=== PATIENT | female | born 1960 | race Caucasian/White ===

== ENCOUNTER 2023-01-14 00:14 | Day surgery (SDC) | payer BC, SELFPAY ==
[2023-01-01 12:57] VITALS: BMI 52.4
[2023-01-14 07:12] VITALS: BP 142/67; PULSE 52; RESP 17; TEMP 36; O2SAT 100; BMI 51.0
[2023-01-14] MEDS: LACTATED RINGERS 1,000 ML 150 ML IV CONT (07:21)
--- NOTE | 2023-01-14 07:27 | PM.HPGS ---
History of Present Illness History of Present Illness Consent: Risks, benefits, and alternatives have been discussed and questions answered. Patient agrees to proceed with procedure. Chief complaint: neoplasm screening Narrative: Sarah Morris is a 62 year old female Presents for screening colonoscopy. Patient's current weight appetite bowel movements are normal. Patient denies abdominal pain. She has had no bleeding. Family history noncontributory. Patient presents today for screening exam. Review of Systems Review of Systems: Review of systems noncontributory. [facility] Past Medical History Medical History Essential (primary) hypertension Hyperlipidemia, unspecified Vitamin D deficiency Surgical History Surgical History History of hysteroscopy D&C, polyp removal 08/25/2013 History of total abdominal hysterectomy and bilateral salpingo-oophorectomy 10/04/2015 Social History Social History (Updated 11/17/22 @ 17:05 by Britt Ramos MA) Smoking status: Former smoker Tobacco type: cigarettes Alcohol intake: current Drinks per week: 2 Substance use: never Substance use type: does not use Lack of Transportation: No Lack of Food: Never True Current Housing: I Have Housing Concerned About Future Housing: No Difficulty Paying Gas/Electric Bills: No Difficulty Paying for Meds: No Currently Unemployed: No Education: High School Diploma/GED Difficulty w/ Childcare or Family Care: No Living arrangements: alone Occupation/Education: occupation Gender identity (if verbalized by the patient): Female Sexual Orientation (if Verbalized by the Patient): Straight or Heterosexual Spiritual care concerns: No Meds Home Medications and Allergies Home Medications Medication Instructions Recorded Confirmed Type atorvastatin 40 mg tablet 40 mg PO DAILY 11/17/22 01/14/23 History spironolactone 25 mg tablet 25 mg PO DAILY 11/17/22 01/14/23 History lisinopril 20 mg tablet 20 mg PO DAILY #90 tabs 11/18/22 01/14/23 Rx metoprolol succinate 200 mg 200 mg PO DAILY 01/14/23 01/14/23 History tablet,extended release 24 hr Allergies Allergy/AdvReac Type Severity Reaction Status Date / Time No Known Allergies Allergy Verified 01/14/23 07:11 Vital Signs Vital Signs - 24 hr 01/14/23 07:12 Temperature 96.8 F L Pulse Rate 52 L Respiratory Rate 17 Blood Pressure 142/67 H Pulse Oximetry 100 Oxygen Delivery Room Air Exam Narrative: Physical exam reveals patient be alert. Vital signs stable. HEENT exam is unremarkable. Patient is anicteric. Lungs are clear to auscultation and percussion. Heart is without murmur or extra sounds. Abdomen Is obese. bowel sounds are present soft nontender with no organomegaly. Digital external rectal exam is normal. Assessment and Plan Assessment and plan (1) Encounter for screening colonoscopy: Code(s): Z12.11 - Encounter for screening for malignant neoplasm of colon Status: Acute Assessment and Plan: Patient presents today for screening colonoscopy. She appears to be at average risk for colon polyps. Further recommendations may be given after endoscopy.
--- NOTE | 2023-01-14 08:11 | P.PNAN_ITS ---
Anes - Initial Pre Proc Eval Procedure: Operation Date: 01/14/23 08:30 Proposed Procedures p Screening Colonoscopy - Juwan Garcia MD Date/Time: 01/14/23 08:11 Surgeon: Juwan Garcia MD Pre Op Diagnosis: neoplasm screening Patient Data Age: 62 Gender: F Height: 1.65 m Weight: 139 kg Last Vital Signs Temp 96.8 F L 01/14/23 07:12 Pulse 52 L 01/14/23 07:12 Resp 17 01/14/23 07:12 BP 142/67 H 01/14/23 07:12 Pulse Ox 100 01/14/23 07:12 O2 Del Method Room Air 01/14/23 07:12 Allergies Allergy/AdvReac Type Severity Reaction Status Date / Time No Known Allergies Allergy Verified 01/14/23 07:11 Home Medications Medication Instructions Recorded Confirmed Type atorvastatin 40 mg tablet 40 mg PO DAILY 11/17/22 01/14/23 History spironolactone 25 mg tablet 25 mg PO DAILY 11/17/22 01/14/23 History lisinopril 20 mg tablet 20 mg PO DAILY #90 tabs 11/18/22 01/14/23 Rx metoprolol succinate 200 mg 200 mg PO DAILY 01/14/23 01/14/23 History tablet,extended release 24 hr Patient hx anesthesia problems: none Family hx anesthesia problems: none Results Review: All pre-operative results and documents have been reviewed as part of the pre- operative evaluation. [facility], [facility] Past Medical History Medical History Essential (primary) hypertension Hyperlipidemia, unspecified Vitamin D deficiency Surgical History Surgical History History of hysteroscopy D&C, polyp removal 08/25/2013 History of total abdominal hysterectomy and bilateral salpingo-oophorectomy 10/04/2015 Social History Social History (Updated 11/17/22 @ 17:05 by Britt Ramos MA) Smoking status: Former smoker Tobacco type: cigarettes Alcohol intake: current Drinks per week: 2 Substance use: never Substance use type: does not use Lack of Transportation: No Lack of Food: Never True Current Housing: I Have Housing Concerned About Future Housing: No Difficulty Paying Gas/Electric Bills: No Difficulty Paying for Meds: No Currently Unemployed: No Education: High School Diploma/GED Difficulty w/ Childcare or Family Care: No Living arrangements: alone Occupation/Education: occupation Gender identity (if verbalized by the patient): Female Sexual Orientation (if Verbalized by the Patient): Straight or Heterosexual Spiritual care concerns: No Anes - Eval Final PreProcedure Day of Procedure 01/14/23 08:11 Patient weight: super morbidly obese Heart: regular rate and rhythm Lungs: clear to auscultation Airway: Mallampati scale class III Neurological: alert and oriented Last oral intake: >/= 8 hours ASA classification: III Emergent: no Anesthetic plan: proceed Anesthesia type and monitoring: general GIVS and standard monitoring Results Review: All pre-operative results and documents have been reviewed as part of the pre- operative evaluation. Informed Consent: The patient's anesthetic plan and its attendant risks and benefits were discussed with the patient/family/POA. Questions were solicited and answers provided to the satisfaction of the patient/family/POA.
[2023-01-14 09:35] VITALS: BP 89/46; PULSE 62; RESP 24; O2SAT 99
[2023-01-14 09:45] VITALS: BP 107/59; PULSE 57; RESP 22; O2SAT 100
[2023-01-14 09:55] VITALS: BP 110/70; PULSE 52; RESP 16; O2SAT 100
== END 2023-01-14 10:16 | disposition home or self-care (01) ==
PROVIDERS: PCP Family Medicine; Visit Provider Internal Medicine Gastroenterology
PROC: 0DJD8ZZ Inspection of Lower Intestinal Tract, Via Natural or Artificial Opening Endoscopic (ICD-10-PCS; CPT 45378; principal; 2023-01-14 08:30)
DX: Z12.11 Encounter for screening for malignant neoplasm of colon (principal); K64.8 Other hemorrhoids; K57.30 Diverticulosis of large intestine without perforation or abscess without bleeding; D12.4 Benign neoplasm of descending colon; K63.5 Polyp of colon; I10 Essential (primary) hypertension; E78.5 Hyperlipidemia, unspecified; Z87.891 Personal history of nicotine dependence; E66.01 Morbid (severe) obesity due to excess calories; Z68.43 Body mass index [BMI] 50.0-59.9, adult
CPT/HCPCS: 45385; 88305; J2704; J7120